=== PATIENT | male | born 1950 | race American Indian/Alaskan Native ===

== ENCOUNTER 2018-11-24 13:15 | Emergency (ER) | payer SELFPAY ==
[2018-11-24] MEDS ORDERED: SODIUM CHLORIDE 0.9% 1,000 ML IV STA ×2 (13:23)
[2018-11-24 13:36] LABS: Glucose,Whole Blood 220 mg/dL (75-99)
--- NOTE | 2018-11-24 13:49 | ED ---
Neuro HPI - General Chief Complaint: Neuro Symptoms/Deficit Stated Complaint: altered Time Seen by Provider: 11/24/18 13:22 Source: patient, EMS, RN notes reviewed, old records reviewed Mode of arrival: EMS Limitations: no limitations - History of Present Illness Is the patient presenting with stroke symptoms?: Yes -: unknown, awoke with symptoms Initial Comments: This is a 68-year-old male the ER for evaluation. Patient cannot provide history history obtained from EMS, per EMS patient was found on echo appropriately of right-sided weakness. He had profound weakness when he arrived his house upon arrival to emergency room patient's right-sided deficit have completely resolved but he is having some speech and attention deficits. Some decreased responsiveness. Otherwise patient's unable to give medical history, and patient has no prior charting here at this hospital Location: speech, right face, right arm, right leg History of same: Yes Place: home Severity: severe Quality: improving Improves With: time Worsens With: none On Anticoagulants: No Associated Symptoms: denies other symptoms Treatments Prior to Arrival: none - Related Data Home Medications: Home Medications Medication Instructions Recorded Confirmed Gliclazide 60mg 120 mg PO DAILY 11/24/18 11/24/18 Linagliptin [Tradjenta] 5 mg PO DAILY 11/24/18 11/24/18 Olmesartan Medoxomil [Benicar] 40 mg PO DAILY 11/24/18 11/24/18 Rosuvastatin Calcium [Crestor] 40 mg PO DAILY 11/24/18 11/24/18 Allergies/Adverse Reactions: Allergies Allergy/AdvReac Type Severity Reaction Status Date / Time No Known Allergies Allergy Verified 11/24/18 14:12 Review of Systems ROS Statement: Those systems with pertinent positive or pertinent negative responses have been documented in the HPI. ROS Other: All systems not noted in ROS Statement are negative. General Exam - General Exam Comments Initial Comments: NIH 2 Limitations: no limitations General appearance: alert, in no apparent distress Head exam: Present: atraumatic, normocephalic, normal inspection Eye exam: Present: normal appearance, PERRL, EOMI. Absent: scleral icterus, conjunctival injection, periorbital swelling ENT exam: Present: normal exam, mucous membranes moist Neck exam: Present: normal inspection. Absent: tenderness, meningismus, lymph adenopathy Respiratory exam: Present: normal lung sounds bilaterally. Absent: respiratory distress, wheezes, rales, rhonchi, stridor Cardiovascular Exam: Present: regular rate, normal rhythm, normal heart sounds. Absent: systolic murmur, diastolic murmur, rubs, gallop, clicks GI/Abdominal exam: Present: soft, normal bowel sounds. Absent: distended, tenderness, guarding, rebound, rigid Extremities exam: Present: normal inspection, full ROM, normal capillary refill. Absent: tenderness, pedal edema, joint swelling, calf tenderness Back exam: Present: normal inspection Neurological exam: Present: alert, oriented X3, CN II-XII intact Psychiatric exam: Present: normal affect, normal mood Skin exam: Present: warm, dry, intact, normal color. Absent: rash Stroke MDM - Lab Data Result diagrams: 11/24/18 13:28 11/24/18 13:28 Lab Results 11/24/18 11/24/18 11/24/18 Range/Units 13:28 13:28 13:28 WBC 9.2 (3.8-10.6) k/uL RBC 4.87 (4.30-5.90) m/uL Hgb 14.3 (13.0-17.5) gm/dL Hct 45.7 (39.0-53.0) % MCV 93.8 (80.0-100.0) fL MCH 29.3 (25.0-35.0) pg MCHC 31.2 (31.0-37.0) g/dL RDW 13.8 (11.5-15.5) % Plt Count 317 (150-450) k/uL Neutrophils % 89 % Lymphocytes % 3 % Monocytes % 3 % Eosinophils % 4 % Basophils % 0 % Neutrophils # 8.2 H (1.3-7.7) k/uL Lymphocytes # 0.3 L (1.0-4.8) k/uL Monocytes # 0.2 (0-1.0) k/uL Eosinophils # 0.4 (0-0.7) k/uL Basophils # 0.0 (0-0.2) k/uL PT 9.7 (9.0-12.0) sec INR 0.9 (<1.2) APTT 22.4 (22.0-30.0) sec Sodium 141 (137-145) mmol/L Potassium 6.0 H (3.5-5.1) mmol/L Chloride 102 (98-107) mmol/L Carbon Dioxide 27 (22-30) mmol/L Anion Gap 12 mmol/L BUN 45 H (9-20) mg/dL Creatinine 1.71 H (0.66-1.25) mg/dL Est GFR (CKD-EPI)AfAm 47 (>60 ml/min/1.73 sqM) Est GFR (CKD-EPI)NonAf 41 (>60 ml/min/1.73 sqM) Glucose 246 H (74-99) mg/dL POC Glucose (mg/dL) (75-99) mg/dL POC Glu Dynamics Ax Technical Architect ID Calcium 9.5 (8.4-10.2) mg/dL Total Bilirubin 0.5 (0.2-1.3) mg/dL AST 25 (17-59) U/L ALT 31 (21-72) U/L Alkaline Phosphatase 139 H (38-126) U/L Troponin I (0.000-0.034) ng/mL Total Protein 8.7 H (6.3-8.2) g/dL Albumin 4.4 (3.5-5.0) g/dL Urine Color Urine Appearance (Clear) Urine pH (5.0-8.0) Ur Specific [place] (1.001-1.035) Urine Protein (Negative) Urine Glucose (UA) (Negative) Urine Ketones (Negative) Urine Blood (Negative) Urine Nitrite (Negative) Urine Bilirubin (Negative) Urine Urobilinogen (<2.0) mg/dL Ur Leukocyte Esterase (Negative) Urine RBC (0-5) /hpf Urine WBC (0-5) /hpf Urine WBC Clumps (None) /hpf Amorphous Sediment (None) /hpf Hyaline Casts (0-2) /lpf Urine Mucus (None) /hpf 11/24/18 11/24/18 11/24/18 Range/Units 13:28 13:35 14:52 WBC (3.8-10.6) k/uL RBC (4.30-5.90) m/uL Hgb (13.0-17.5) gm/dL Hct (39.0-53.0) % MCV (80.0-100.0) fL MCH (25.0-35.0) pg MCHC (31.0-37.0) g/dL RDW (11.5-15.5) % Plt Count (150-450) k/uL Neutrophils % % Lymphocytes % % Monocytes % % Eosinophils % % Basophils % % Neutrophils # (1.3-7.7) k/uL Lymphocytes # (1.0-4.8) k/uL Monocytes # (0-1.0) k/uL Eosinophils # (0-0.7) k/uL Basophils # (0-0.2) k/uL PT (9.0-12.0) sec INR (<1.2) APTT (22.0-30.0) sec Sodium (137-145) mmol/L Potassium (3.5-5.1) mmol/L Chloride (98-107) mmol/L Carbon Dioxide (22-30) mmol/L Anion Gap mmol/L BUN (9-20) mg/dL Creatinine (0.66-1.25) mg/dL Est GFR (CKD-EPI)AfAm (>60 ml/min/1.73 sqM) Est GFR (CKD-EPI)NonAf (>60 ml/min/1.73 sqM) Glucose (74-99) mg/dL POC Glucose (mg/dL) 220 H (75-99) mg/dL POC Glu Dynamics Ax Technical Architect ID Cornelia Gandhi Calcium (8.4-10.2) mg/dL Total Bilirubin (0.2-1.3) mg/dL AST (17-59) U/L ALT (21-72) U/L Alkaline Phosphatase (38-126) U/L Troponin I <0.012 (0.000-0.034) ng/mL Total Protein (6.3-8.2) g/dL Albumin (3.5-5.0) g/dL Urine Color Yellow Urine Appearance Cloudy (Clear) Urine pH 7.5 (5.0-8.0) Ur Specific [place] 1.026 (1.001-1.035) Urine Protein 2+ H (Negative) Urine Glucose (UA) 2+ H (Negative) Urine Ketones Negative (Negative) Urine Blood Small H (Negative) Urine Nitrite Positive (Negative) Urine Bilirubin Negative (Negative) Urine Urobilinogen <2.0 (<2.0) mg/dL Ur Leukocyte Esterase Large H (Negative) Urine RBC 33 H (0-5) /hpf Urine WBC >182 H (0-5) /hpf Urine WBC Clumps Few H (None) /hpf Amorphous Sediment Few H (None) /hpf Hyaline Casts 34 H (0-2) /lpf Urine Mucus Rare H (None) /hpf - NIH Stroke Scale 1a. Level of Consciousness: (0) alert 1b. LOC Questions: (0) answers correctly 1c. LOC Commands: (0) performs tasks correctly 2. Best Gaze: (0) normal 3. Visual: (0) no visual loss 4. Facial Palsy: (0) normal symmetrical movement 5a. Motor Arm Left: (0) no drift 5b. Motor Arm Right: (0) no drift 6a. Motor Leg Left: (0) no drift 6b. Motor Leg Right: (0) no drift 7. Limb Ataxia: (0) absent 8. Sensory: (0) normal 9. Best Language: (1) mild/moderate aphasia 10. Dysarthria: (1) mild/moderate dysarthria 11. Extinction/Inattention: (0) no abnormality - Thrombolytic Inclusion/Exclusion Thrombolytic Exclusion Criteria: Onset of Symptoms Unknown, Symptom Onset > 3 Hours Thrombolytic Contraindications: Rapidly Improving s/s - Medical Decision Making 68 male the ER with strokelike symptoms, no symptoms did resolve. Patient has normal CT scans. Significant UTI. Patient will treat UTI an transfer to [facility] neurology evaluation - Radiology Data Radiology results: report reviewed (CT brain CTA head neck negative, CXR negative), image reviewed - EKG Data -: EKG Interpreted by Me (EKG sinus tachycardia rate of 101, FL 124, QRS 84, QTc 409) Past Medical History Past Medical History: CVA/TIA, Hyperlipidemia, Hypertension History of Any Multi-Drug Resistant Organisms: Unobtainable Past Surgical History: Unable to Obtain Past Psychological History: Unable to Obtain Smoking Status: Never smoker Past Alcohol Use History: None Reported Past Drug Use History: None Reported Course Vital Signs 11/24/18 11/24/18 11/24/18 13:20 13:21 13:35 Temperature 98.3 F Pulse Rate 104 H 106 H 100 Pulse Rate [ [employer]ester ] Respiratory 18 18 16 Rate Blood Pressure 141/94 141/94 149/88 O2 Sat by Pulse 99 96 98 Oximetry 11/24/18 11/24/18 11/24/18 13:50 14:05 14:20 Temperature Pulse Rate 103 H 104 H 103 H Pulse Rate [ [employer] ] Respiratory 18 16 16 Rate Blood Pressure 156/89 169/80 153/87 O2 Sat by Pulse 100 99 99 Oximetry 11/24/18 11/24/18 15:07 15:14 Temperature Pulse Rate 100 Pulse Rate [ 105 H [employer] Le[employer]ester ] Respiratory 18 Rate Blood Pressure 165/92 O2 Sat by Pulse 99 Oximetry - Reevaluation(s) Reevaluation #1: 11/24/18 16:09 medical record is reviewed non contributory Reevaluation #2: 11/24/18 16:09 patients neuro symptoms resolved upon arrival but continue to come and go , unrespnnsiveness Reevaluation #3: 11/24/18 16:10 decreased loc Reevaluation #4: 11/24/18 16:10 spoke w family on phone who is stating that patient is far from his baseline. Critical Care Time Critical Care Time: Yes Total Critical Care Time: 31 Disposition Clinical Impression: Cerebrovascular accident, Transient cerebral ischemia, Altered mental status, UTI (urinary tract infection) Disposition: OTHER INSTITUTION NOT DEFINED Condition: Fair Is patient prescribed a controlled substance at d/c from ED?: No Referrals: None,Stated [Primary Care Provider] - 1-2 days - Out of Hospital Transfer - Req. Specs Out of Hospital Transfer - Requested Specifics: Other Emergency Center ([facility])
[2018-11-24 13:54] LABS: Basophils % (A) 0 %; Eosinophils # (A) 0.4 k/uL (0-0.7); Eosinophils % (A) 4 %; HCT 45.7 % (39.0-53.0); HGB 14.3 gm/dL (13.0-17.5); Lymphocytes # (A) 0.3 k/uL (1.0-4.8); Lymphocytes % (A) 3 %; MCH 29.3 pg (25.0-35.0); MCHC 31.2 g/dL (31.0-37.0); MCV 93.8 fL (80.0-100.0); Mean Platelet Volume 6.8; Monocytes # (A) 0.2 k/uL (0-1.0); Monocytes % (A) 3 %; Neutrophils # (A) 8.2 k/uL (1.3-7.7); Neutrophils % (A) 89 %; Platelet Count 317 k/uL (150-450); RBC 4.87 m/uL (4.30-5.90); RDW 13.8 % (11.5-15.5); WBC 9.2 k/uL (3.8-10.6)
[2018-11-24 14:05] LABS: Albumin 4.4 g/dL (3.5-5.0); Calcium 9.5 mg/dL (8.4-10.2); Total Bilirubin 0.5 mg/dL (0.2-1.3); Total Protein 8.7 g/dL (6.3-8.2)
[2018-11-24 14:16] LABS: INR 0.9 (<1.2); Partial Thromboplastin Time 22.4 sec (22.0-30.0); Prothrombin Time 9.7 sec (9.0-12.0)
--- NOTE | 2018-11-24 14:32 | CT ---
EXAMINATION TYPE: CT brain wo con for TPA DATE OF EXAM: 11/24/2018 COMPARISON: None INDICATION: Neuro deficits DLP: unavailable mGycm, Automated exposure control for dose reduction was used. CONTRAST: None CT of the brain is performed utilizing 3 mm thick sections through the posterior fossa and 3 mm thick sections through the remaining calvarium. Study is performed within 24 hours of arrival to the hosp ital. No abnormal hyperdensity is present to suggest an acute intracranial hemorrhage. No mass lesion is evident. No acute infarcts are evident. There is some hypodensity through the left frontal parietal region may be present prior ischemic change. Ventricles and sulci are appropriate for the patient age. Old lacunar infarct is likely within the r ight basal ganglion. Mucosal thickening is within the left axilla sinus.. Some mucosal thickenings and posterior right eth moid air cell. Mastoid air cells are clear. IMPRESSIONS: 1. No acute intracranial process. 2. Old appearing ischemic change left frontal parietal region. Old lacunar infarct right basal gangli on.
--- NOTE | 2018-11-24 14:47 | XR ---
EXAMINATION TYPE: XR chest 1V portable DATE OF EXAM: 11/24/2018 COMPARISON: NONE HISTORY: Altered mental status TECHNIQUE: Single frontal view of the chest is obtained. FINDINGS: There is no focal air space opacity, pleural effusion, or pneumothorax seen. The cardiac silhouette size is within normal limits. The osseous structures are intact. Limited inspiration wit h atherosclerotic change aorta. IMPRESSION: No acute process.
--- NOTE | 2018-11-24 15:01 | CT ---
EXAMINATION TYPE: CT angio head neck DATE OF EXAM: 11/24/2018 HISTORY: Neuro deficits COMPARISON: None CT DLP: 1673.6 mGycm. Automated Exposure Control for Dose Reduction was Utilized. TECHNIQUE: CTA scan of the neck is performed with IV Contrast, patient injected with 65 mL of Isovue 370, axial images are obtained, coronal and sagittal reformatted images are reviewed. Three-D recons tructed images are created on an independent workstation and reviewed. FINDINGS: Carotid/Vascular Structures: Vascular calcification is at the carotid bifurcations. Vascular calcific ations within the aortic arch. There is a three-vessel arch. The vertebral arteries are codominant. The common carotid arteries bifurcate into internal and external carotid vessels. Significant flow-li miting stenosis at the carotid bifurcations is not evident. Internal carotid arteries are patent to t he skull base. Other: [place]: Vertebral basilar system appears normal. Posterior cerebral vasculature is n ormal. Middle cerebral artery branches are unremarkable. The internal carotid arteries bifurcate into A1 and M1 segments. The anterior communicating artery is patent. Posterior communicating arteries ar e not identified. Torus tubarius and fossa of [place] are normal. Parotid glands are unremarkable. Submandibular re gions are unremarkable. Small submental nodes are present. Lung apices are unremarkable IMPRESSION: 1. Atheromatous plaquing without significant flow-limiting stenosis bilateral carotid bifurcations. N arrowing less than 50%. 2. Normal [place]
[2018-11-24 15:10] LABS: Amorphous Sediment,Urine Few /hpf; Appearance,Urine Cloudy (Clear); Bilirubin,Urine Negative (Negative); Blood,Urine Small (Negative); Color,Urine Yellow; Glucose,Urine (UA) 2+ (Negative); Hyaline Casts,Urine 34 /lpf (0-2); Ketones,Urine Negative (Negative); Leukocyte Esterase,Urine Large (Negative); Mucus,Urine Rare /hpf; Nitrite,Urine Positive (Negative); PH, Urine 7.5 (5.0-8.0); Protein,Urine 2+ (Negative); RBC,Urine 33 /hpf (0-5); Specific Gravity,Urine 1.026 (1.001-1.035); Urobilinogen,Urine <2.0 mg/dL (<2.0); WBC,Urine >182 /hpf (0-5)
[2018-11-24 15:14] VITALS: PULSE 105
[2018-11-24] MEDS ORDERED: SODIUM CHLORIDE 0.9% 500 ML 500 ML IV STA (15:49)
[2018-11-24 16:35] VITALS: BP 137/82; RESP 22; TEMP 102.9
[2018-11-24] MEDS ORDERED: ACETAMINOPHEN SUPPOSITORY 650 MG SUPP RECTAL STA (16:38)
[2018-11-24] MEDS ORDERED: ONDANSETRON 4 MG/2 ML VIAL IVP STA (17:03)
== END 2018-11-24 17:30 | disposition short-term general hospital (02) ==
LOC: EC 13:15
DX: I63.9 Cerebral infarction, unspecified (principal); R47.9 Unspecified speech disturbances; N39.0 Urinary tract infection, site not specified; R00.0 Tachycardia, unspecified; R29.702 NIHSS score 2; E78.5 Hyperlipidemia, unspecified; I10 Essential (primary) hypertension; Z79.84 Long term (current) use of oral hypoglycemic drugs; Z79.899 Other long term (current) drug therapy
CPT/HCPCS: 36415; 80053; 84484; 85025; 85610; 85730; 81001; 87086; 71045; 70496; 70450; 70498; 99291; 96365; 96375; 96361 ×3; J2405; J0696; Q9967